=== PATIENT | male | born 1970 | race Caucasian/White ===

== ENCOUNTER 2019-07-15 17:01 | Inpatient (IN) ==
[2019-07-15] MEDS ORDERED: FUROSEMIDE 100 MG/10 ML VIAL IV STA (21:14)
[2019-07-15] MEDS ORDERED: ONDANSETRON 4 MG/2 ML VIAL IV STA (21:14)
[2019-07-15] MEDS ORDERED: VANCOMYCIN INJ 1,000 MG in SODIUM CHLORIDE 0.9% 250 ML IV STA ×2 (21:14→21:24)
[2019-07-15 21:32] LABS: Basophils # 0.1 10*3/uL (0.0-0.2); Basophils % 0.5 % (0.0-0.8); Eosinophils # 0.4 10*3/uL (0.0-0.87); Eosinophils % 2.1 % (0.00-10.9); Hematocrit 32.2 VOL% (42.0-52.0); Hemoglobin 9.8 GM/DL (14.0-18.0); Immature Granulocytes % 0.8 %; Immature Granulocytes Absolute 0.14 #; Lymphocytes # 2.4 10*3/uL (1.4-4.0); Lymphocytes % 13.9 % (21.2-54.2); Mean Corpuscular HGB Conc 30.4 GM/DL (32-36); Mean Corpuscular Volume 82.4 FL (87-102); Mean Platelet Volume 9.3 FL (9.6-12.0); Monocytes % 10.3 % (1.7-12.7); NRBC # 0.02 10*3/uL; Neutrophils % 72.4 % (38.7-73.9); Platelet Count 425 T/CUMM (130-400); Red Blood Count 3.91 MC/CUMM (3.8-5.5); Red Cell Distribution Width 18.4 % (9.3-17.3); White Blood Count 16.9 T/CUMM (4-12)
[2019-07-15 21:37] LABS: INR 1.1; PT Patient Result 11.6 SECS (9.6-12.2)
[2019-07-15 21:52] LABS: Alanine Aminotransferase 10 U/L (16-61); Albumin 1.9 G/DL (3.4-5.0); Alkaline Phosphatase 116 U/L (45-117); Aspartate Amino Transferase 34 U/L (0-37); Blood Urea Nitrogen 44 MG/DL (7-18); CKMB % 6.3 %; Calcium 8.3 MG/DL (8.5-10.1); Estimated Glom Filtration Rate 11 ML/MIN; Glucose 220 MG/DL (74-106); Osmolality,Calculated 283.4 MOS/KG (273-304); Total Protein 7.5 G/DL (6.4-8.3); Troponin I < 0.015 NG/ML (0.00-0.045)
[2019-07-16] MEDS ORDERED: ACETAMINOPHEN 325 MG TABLET PO PRN (00:28)
[2019-07-16] MEDS ORDERED: DEXTROSE 50% 25 GM/50 ML SYRINGE IV PRN (00:28)
[2019-07-16] MEDS ORDERED: GLUCAGON 1 MG VIAL IM PRN (00:28)
[2019-07-16] MEDS ORDERED: VANCOMYCIN INJ 500 MG in SODIUM CHLORIDE 0.9% 100 ML IV PRN (03:27)
[2019-07-16] MEDS: INSULIN REGULAR 100 UNIT/ML SUBCUT SCH ×5 (04:26→21:48)
[2019-07-16 07:29] LABS: Basophils # 0.1 10*3/uL (0.0-0.2); Basophils % 0.4 % (0.0-0.8); Eosinophils # 0.4 10*3/uL (0.0-0.87); Eosinophils % 2.2 % (0.00-10.9); Hemoglobin 9.2 GM/DL (14.0-18.0); Immature Granulocytes % 0.7 %; Immature Granulocytes Absolute 0.12 #; Lymphocytes % 11.2 % (21.2-54.2); Mean Corpuscular HGB Conc 29.7 GM/DL (32-36); Mean Corpuscular Volume 83.8 FL (87-102); Mean Platelet Volume 8.9 FL (9.6-12.0); Monocytes % 11.5 % (1.7-12.7); Platelet Count 349 T/CUMM (130-400); Red Cell Distribution Width 18.6 % (9.3-17.3); White Blood Count 18.1 T/CUMM (4-12)
[2019-07-16 07:57] LABS: Alanine Aminotransferase < 6 U/L (16-61); Albumin 1.6 G/DL (3.4-5.0); Alkaline Phosphatase 92 U/L (45-117); Aspartate Amino Transferase 15 U/L (0-37); Bilirubin,Total < 0.39 MG/DL (0.2-1.0); Blood Urea Nitrogen 48 MG/DL (7-18); Calcium 8.2 MG/DL (8.5-10.1); Estimated Glom Filtration Rate 11 ML/MIN; Glucose 149 MG/DL (74-106); Osmolality,Calculated 279.5 MOS/KG (273-304); Total Protein 6.6 G/DL (6.4-8.3)
[2019-07-16] MEDS: PANTOPRAZOLE 40 MG TABLET PO SCH (09:11)
[2019-07-16] MEDS ORDERED: GENTAMICIN INJ 100 MG in PREMIX 1 EACH IV PRN (09:22)
[2019-07-16] MEDS ORDERED: GENTAMICIN INJ 100 MG in PREMIX 1 EACH IV ONE (10:00)
[2019-07-16] MEDS: metroNIDAZOLE INJ 500 MG in PREMIX 1 EACH IV SCH ×2 (11:10→18:34)
[2019-07-16 12:42] LABS: Hepatitis B Core IgM Quant 0.09 Index; Hepatitis B Surface Ag Quant < 0.10 Index; Hepatitis B Surface Ag Result Negative (Negative); Hepatitis C Virus Ab Quant 0.15 Index; Hepatitis C Virus Ab Result Negative (Negative)
[2019-07-16 14:21] LABS: HIV Antigen/Antibody Result Nonreactive (Nonreactive)
[2019-07-16] MEDS ORDERED: ALTEPLASE 2 MG VIAL IV ONE (15:00)
[2019-07-16] MEDS ORDERED: HEPARIN 10,000 UNIT/10 ML VIAL IV SCH (15:00)
[2019-07-16] MEDS ORDERED: VANCOMYCIN INJ 500 MG in SODIUM CHLORIDE 0.9% 100 ML IV ONE (17:00)
[2019-07-17] MEDS: metroNIDAZOLE INJ 500 MG in PREMIX 1 EACH IV SCH ×3 (00:53→16:17)
[2019-07-17 06:16] LABS: Apearance,Urine CLEAR (Clear); Bilirubin,Urine Negative (Negative); Blood, Urine Small mg/dL (Negative); Glucose,Urine (UA) >=500 mg/dL (Negative); Hyaline Casts,Urine 13 /LPF (0-3); Ketones,Urine Negative (Negative); Mucus,Urine Occasional /LPF (Occasional); Nitrite,Urine Negative (Negative); Protein,Urine 100 MG/DL; RBC,Urine 7 /HPF (0-4); Squamous Epithelial Cell,Urine Occasional /HPF (0-10); Urine Color Yellow (Yellow); Urine Specific Gravity 1.012 (1.001-1.035); Urine Urobilinogen < 2.0 EU/DL (0.2-1.0); WBC,Urine 5 /HPF (0-6)
[2019-07-17 06:18] LABS: Hepatitis B Core IgM Quant 0.09 Index; Hepatitis B Surface Ag Quant < 0.10 Index; Hepatitis B Surface Ag Result Negative (Negative); Hepatitis C Virus Ab Quant 0.21 Index; Hepatitis C Virus Ab Result Negative (Negative)
[2019-07-17 06:22] LABS: Barbiturates Screen,Urine Negative (Negative); Benzodiazepines Screen,Urine Negative (Negative); Cannabinoid Screen,Urine Negative (Negative); Opiate Screen,Urine Positive (Negative); Phencyclidine Screen,Urine Negative (Negative)
[2019-07-17 06:25] LABS: Sedimentation Rate-Westergren 110 MM/HR (0-15)
[2019-07-17] MEDS ORDERED: ROPIVACAINE 0.5% 30 ML VIAL ONE (06:28)
[2019-07-17] MEDS ORDERED: NEOMYCIN/POLYMYXIN/BACITRACIN OINT 28.4 GM TUBE TOP ONE (06:28)
[2019-07-17] MEDS ORDERED: SODIUM CHLORIDE 0.9% 250 ML IV SCH (07:00)
[2019-07-17 07:29] LABS: Osmolality,Calculated 284.7 MOS/KG (273-304)
[2019-07-17 07:37] LABS: Basophils # 0.1 10*3/uL (0.0-0.2); Basophils % 0.8 % (0.0-0.8); Eosinophils # 0.2 10*3/uL (0.0-0.87); Eosinophils % 1.4 % (0.00-10.9); Hematocrit 29.7 VOL% (42.0-52.0); Hemoglobin 8.9 GM/DL (14.0-18.0); Immature Granulocytes % 0.6 %; Immature Granulocytes Absolute 0.07 #; Lymphocytes % 15.9 % (21.2-54.2); Mean Corpuscular Volume 84.1 FL (87-102); Mean Platelet Volume 9.1 FL (9.6-12.0); Monocytes % 11.8 % (1.7-12.7); Neutrophils % 69.5 % (38.7-73.9); Platelet Count 333 T/CUMM (130-400); Red Blood Count 3.53 MC/CUMM (3.8-5.5); Red Cell Distribution Width 18.4 % (9.3-17.3); White Blood Count 12.5 T/CUMM (4-12)
[2019-07-17] MEDS ORDERED: HYDROmorphone 2 MG/1 ML VIAL ONE (08:21)
[2019-07-17] MEDS ORDERED: ONDANSETRON 4 MG/2 ML VIAL ONE (08:21)
[2019-07-17] MEDS ORDERED: ONDANSETRON 4 MG/2 ML VIAL IV PRN (08:22)
[2019-07-17] MEDS: HYDROmorphone 2 MG/1 ML VIAL IV PRN ×4 (08:23→08:41)
[2019-07-17] MEDS: INSULIN REGULAR 100 UNIT/ML SUBCUT SCH ×4 (08:34→21:21)
[2019-07-17] MEDS ORDERED: MEPERIDINE 25 MG/1 ML VIAL IV PRN (08:47)
[2019-07-17] MEDS ORDERED: MEPERIDINE 25 MG/1 ML VIAL ONE (08:48)
[2019-07-17] MEDS: PANTOPRAZOLE 40 MG TABLET PO SCH (09:43)
[2019-07-17] MEDS: MORPHINE 4 MG/1 ML VIAL IV PRN ×2 (18:15→21:19)
[2019-07-17] MEDS: MENTHOL/ZINC OXIDE OINT 71 GM JAR TOP SCH (21:08)
[2019-07-17] MEDS: NEOMYCIN/POLYMYXIN/BACITRACIN OINT 0.9 GM PACK TOP SCH (21:08)
[2019-07-17] MEDS: ALPRAZolam 0.5 MG TABLET PO SCH (21:09)
[2019-07-17] MEDS: carvediloL 3.125 MG TABLET PO SCH (21:10)
[2019-07-17] MEDS: COLCHICINE 0.6 MG CAPSULE PO SCH (21:11)
[2019-07-17] MEDS: ONDANSETRON 4 MG/2 ML VIAL IV PRN (21:15)
[2019-07-17 23:31] LABS: Cyclic Citrull Peptide Interp Negative
[2019-07-18 05:38] LABS: Basophils # 0.1 10*3/uL (0.0-0.2); Basophils % 0.6 % (0.0-0.8); Eosinophils # 0.6 10*3/uL (0.0-0.87); Hematocrit 28.1 VOL% (42.0-52.0); Hemoglobin 8.3 GM/DL (14.0-18.0); Immature Granulocytes % 0.6 %; Immature Granulocytes Absolute 0.09 #; Lymphocytes # 2.5 10*3/uL (1.4-4.0); Lymphocytes % 17.9 % (21.2-54.2); Mean Corpuscular HGB Conc 29.5 GM/DL (32-36); Mean Corpuscular Volume 83.9 FL (87-102); Mean Platelet Volume 8.8 FL (9.6-12.0); Monocytes % 10.4 % (1.7-12.7); Neutrophils % 66.5 % (38.7-73.9); Platelet Count 323 T/CUMM (130-400); Red Blood Count 3.35 MC/CUMM (3.8-5.5); Red Cell Distribution Width 17.9 % (9.3-17.3); White Blood Count 14.1 T/CUMM (4-12)
[2019-07-18] MEDS: LOPERAMIDE 1 MG/7.5 ML 30 ML BOTTLE PO PRN ×2 (05:48→18:33)
[2019-07-18 06:18] LABS: Calcium 8.2 MG/DL (8.5-10.1)
[2019-07-18] MEDS ORDERED: propofoL 200 MG/20 ML VIAL IV ONE (06:44)
[2019-07-18] MEDS ORDERED: LIDOCAINE 2% 5 ML VIAL ONE (06:44)
[2019-07-18] MEDS ORDERED: SEVOFLURANE 1 UNIT/15 MINUTE INH ONE (06:44)
[2019-07-18] MEDS ORDERED: MIDAZOLAM 2 MG/2 ML VIAL ONE (06:44)
[2019-07-18] MEDS ORDERED: fentaNYL 100 MCG/2 ML VIAL ONE (06:45)
[2019-07-18] MEDS ORDERED: ONDANSETRON 4 MG/2 ML VIAL ONE (06:45)
[2019-07-18] MEDS ORDERED: PHENYLEPHRINE 1 MG/10 ML SYRINGE IV ONE (06:45)
[2019-07-18] MEDS: MORPHINE 4 MG/1 ML VIAL IV PRN ×2 (08:23→15:12)
[2019-07-18] MEDS: INSULIN REGULAR 100 UNIT/ML SUBCUT SCH ×4 (08:26→22:07)
[2019-07-18] MEDS: PANTOPRAZOLE 40 MG TABLET PO SCH (08:27)
[2019-07-18] MEDS: LISINOPRIL/HCTZ 20-12.5 MG TABLET PO SCH (08:27)
[2019-07-18] MEDS: ALPRAZolam 0.5 MG TABLET PO SCH ×2 (08:27→21:44)
[2019-07-18] MEDS: NEOMYCIN/POLYMYXIN/BACITRACIN OINT 0.9 GM PACK TOP SCH ×2 (08:27→22:09)
[2019-07-18] MEDS: MENTHOL/ZINC OXIDE OINT 71 GM JAR TOP SCH ×2 (08:27→21:47)
[2019-07-18] MEDS: carvediloL 3.125 MG TABLET PO SCH ×2 (08:27→21:45)
[2019-07-18] MEDS: COLCHICINE 0.6 MG CAPSULE PO SCH ×2 (08:27→21:44)
[2019-07-18] MEDS ORDERED: GENTAMICIN INJ 100 MG in PREMIX 1 EACH IV ONE (17:00)
[2019-07-18] MEDS: INSULIN LISPRO PROTAMINE/LISPRO 75/25 100 UNIT/ML SUBCUT SCH (17:30)
[2019-07-18] MEDS ORDERED: VANCOMYCIN INJ 500 MG in SODIUM CHLORIDE 0.9% 100 ML IV ONE (18:00)
[2019-07-18] MEDS: ONDANSETRON 4 MG/2 ML VIAL IV PRN (21:45)
[2019-07-19 06:57] LABS: Basophils # 0.1 10*3/uL (0.0-0.2); Basophils % 0.5 % (0.0-0.8); Eosinophils # 0.7 10*3/uL (0.0-0.87); Eosinophils % 4.3 % (0.00-10.9); Hematocrit 28.4 VOL% (42.0-52.0); Hemoglobin 8.5 GM/DL (14.0-18.0); Immature Granulocytes % 0.5 %; Immature Granulocytes Absolute 0.09 #; Lymphocytes # 1.8 10*3/uL (1.4-4.0); Lymphocytes % 10.9 % (21.2-54.2); Mean Corpuscular HGB Conc 29.9 GM/DL (32-36); Mean Corpuscular Volume 84.3 FL (87-102); Mean Platelet Volume 9.1 FL (9.6-12.0); Monocytes % 8.4 % (1.7-12.7); Neutrophils % 75.4 % (38.7-73.9); Platelet Count 309 T/CUMM (130-400); Red Blood Count 3.37 MC/CUMM (3.8-5.5); Red Cell Distribution Width 18.3 % (9.3-17.3); White Blood Count 16.4 T/CUMM (4-12)
[2019-07-19] MEDS: INSULIN REGULAR 100 UNIT/ML SUBCUT SCH ×4 (08:52→20:28)
[2019-07-19] MEDS: PANTOPRAZOLE 40 MG TABLET PO SCH (08:53)
[2019-07-19] MEDS: INSULIN LISPRO PROTAMINE/LISPRO 75/25 100 UNIT/ML SUBCUT SCH ×2 (08:53→17:31)
[2019-07-19] MEDS: MORPHINE 4 MG/1 ML VIAL IV PRN ×2 (08:53→12:23)
[2019-07-19] MEDS: carvediloL 3.125 MG TABLET PO SCH ×2 (08:54→21:10)
[2019-07-19] MEDS: COLCHICINE 0.6 MG CAPSULE PO SCH ×2 (08:54→21:10)
[2019-07-19] MEDS: NEOMYCIN/POLYMYXIN/BACITRACIN OINT 0.9 GM PACK TOP SCH ×2 (08:54→21:10)
[2019-07-19] MEDS: LISINOPRIL/HCTZ 20-12.5 MG TABLET PO SCH (08:54)
[2019-07-19] MEDS: MENTHOL/ZINC OXIDE OINT 71 GM JAR TOP SCH ×2 (10:12→21:10)
[2019-07-19] MEDS: ALPRAZolam 0.5 MG TABLET PO SCH ×2 (10:12→21:10)
[2019-07-19] MEDS: LOPERAMIDE 1 MG/7.5 ML 30 ML BOTTLE PO PRN (17:19)
[2019-07-19 20:18] VITALS: BP 165/84
[2019-07-22 16:06] LABS: Cryoglobulin, S Negative %ppt (Negative)
== END 2019-07-19 21:20 | disposition home health service (06) | DRG 483 ==
LOC: N.ED 17:01 → SUATTDRO 07-16 00:28 → N.EDINP 07-16 00:28 → N.5E 07-16 02:54
PROVIDERS: ADMIT Nurse Practitioner Family; ATTEND Family Medicine